=== PATIENT | female | born 1955 | race Caucasian/White ===

== ENCOUNTER 2022-06-01 16:18 | Inpatient (IN) | payer MEDICAID, MEDICARE ==
[~2022-06-01] VITALS: Ht 167.6 cm; Wt 78.0 kg
[2022-06-01] MEDS ORDERED: ONDANSETRON HCL 4MG/2ML INJ IV STA (23:55)
[2022-06-01] MEDS ORDERED: MORPHINE SULFATE 4 MG/ML CPJ (NOT FOR IM USE) IV STA (23:55)
[2022-06-02] MEDS ORDERED: SODIUM CHLORIDE 0.9% 1,000 ML IV ONE
[2022-06-02 00:34] LABS: BASOPHILS % 0.4 % (0.0-2.0); EOSINOPHILS % 3.3 % (0.0-5.0); HEMATOCRIT. 36.3 % (36.0-48.0); HEMOGLOBIN. 12.3 g/dL (12.0-16.0); LYMPHOCYTES % 27.3 % (20.0-50.0); MEAN CORPUSCULAR HEMOGLOBIN 30.2 pg (28.0-32.0); MEAN CORPUSCULAR VOLUME 89.4 fL (81.0-99.0); MEAN PLATELET VOLUME 8.9 fl (7.4-10.4); MONOCYTES % 9.5 % (2.0-8.0); NEUTROPHILS % 59.5 % (40.0-76.0); PLATELET 237 x1000/uL (130-400); RED BLOOD CELL COUNT 4.06 mill/uL (4.2-5.4); RED CELL DISTRIBUTION WIDTH 13.4 % (11.6-14.6)
[2022-06-02] MEDS ORDERED: METRONIDAZOLE 500 MG PREMIX 100 ML IV NR (01:00)
[2022-06-02] MEDS ORDERED: CEFTRIAXONE 1 G PREMIX 50 ML IV NR (01:00)
[2022-06-02 01:19] LABS: CLARITY URINE CLEAR (CLEAR); COLOR URINE YELLOW (YELLOW); KETONES URINE NEGATIVE (NEGATIVE); LEUKOCYTE ESTERASE URINE 1+ (NEGATIVE); NITRITE URINE NEGATIVE (NEGATIVE); OCCULT BLOOD URINE 1+ (NEGATIVE); PROTEIN URINE NEGATIVE (NEGATIVE); SPECIFIC GRAVITY URINE 1.007 (1.005-1.030); UROBILINOGEN URINE 0.2 E.U./dL (0.2-1.0)
[2022-06-02 01:54] LABS: CHLORIDE 107 mEq/L (98-107)
[2022-06-02] MEDS ORDERED: OMEP20CA14 PO (08:05)
[2022-06-02] MEDS ORDERED: LISI-186 PO (08:05)
[2022-06-02] MEDS ORDERED: HYDROCODONE/ACETAMINOPHEN 5/325MG TABLET PO PRN (09:00)
[2022-06-02] MEDS ORDERED: CLONIDINE 0.1MG TABLET PO PRN (09:00)
[2022-06-02] MEDS ORDERED: ONDANSETRON HCL 4MG/2ML INJ IV PRN (09:00)
[2022-06-02] MEDS ORDERED: IPRATROPIUM/ALBUTEROL 0.5-3(2.5)MG/3ML NEB NEB PRN (09:00)
[2022-06-02] MEDS ORDERED: GUAIFENESIN 200MG/10ML SUGAR FREE UDC PO PRN (09:00)
[2022-06-02] MEDS ORDERED: DOCUSATE SODIUM 100MG CAPSULE PO PRN (09:00)
[2022-06-02] MEDS ORDERED: ACETAMINOPHEN 325MG TABLET PO PRN ×2 (09:00)
[2022-06-02] MEDS ORDERED: MAGNESIUM/ALUMINUM HYDROXIDE/SIMETHICONE 30ML UDC PO PRN (09:00)
[2022-06-02] MEDS ORDERED: NALOXONE HCL 0.4MG/ML VIAL IV PRN (09:30)
[2022-06-02] MEDS: LISINOPRIL 10MG TABLET PO SCH (09:40)
[2022-06-02] MEDS: PANTOPRAZOLE SODIUM 40 MG/VIAL IV SCH (09:40)
[2022-06-02] MEDS: DEXT 5%/0.45% NACL 1000ML 1,000 ML IV SCH ×2 (09:40→22:12)
[2022-06-02] MEDS ORDERED: METRONIDAZOLE 500 MG PREMIX 100 ML IV SCH (10:00)
[2022-06-02] MEDS: ENOXAPARIN 40MG/0.4ML SYR SUBCUT SCH (10:42)
[2022-06-02 20:00] VITALS: BP 111/45
[2022-06-02] MEDS ORDERED: CEFTRIAXONE 1,000 MG in DEXTROSE 5% WATER 50 ML IV SCH (22:00)
[2022-06-02] MEDS: METRONIDAZOLE 500 MG PREMIX 100 ML IV SCH (22:04)
[2022-06-03] VITALS (7 sets, daily range): BP systolic 96–134; BP diastolic 43–68
[2022-06-03] MEDS: METRONIDAZOLE 500 MG PREMIX 100 ML IV SCH ×2 (05:26→15:12)
[2022-06-03 07:30] LABS: BASOPHILS % 0.7 % (0.0-2.0); EOSINOPHILS % 7.9 % (0.0-5.0); HEMATOCRIT. 35.6 % (36.0-48.0); HEMOGLOBIN. 12.1 g/dL (12.0-16.0); LYMPHOCYTES % 36.5 % (20.0-50.0); MEAN CORPUSCULAR HEMOGLOBIN 30.5 pg (28.0-32.0); MEAN CORPUSCULAR VOLUME 89.4 fL (81.0-99.0); MEAN PLATELET VOLUME 8.5 fl (7.4-10.4); MONOCYTES % 10.8 % (2.0-8.0); NEUTROPHILS % 44.1 % (40.0-76.0); PLATELET 230 x1000/uL (130-400); RED BLOOD CELL COUNT 3.98 mill/uL (4.2-5.4); RED CELL DISTRIBUTION WIDTH 13.3 % (11.6-14.6)
[2022-06-03] MEDS ORDERED: CEFTRIAXONE 1,000 MG in DEXTROSE 5% WATER 50 ML IV SCH (08:00)
[2022-06-03] MEDS: LISINOPRIL 10MG TABLET PO SCH (09:00)
[2022-06-03 09:12] LABS: CHLORIDE 111 mEq/L (98-107); HDL CHOLESTEROL 66 mg/dL (40-59); LDL CHOLESTEROL 72 mg/dL (5-100)
[2022-06-03] MEDS: PANTOPRAZOLE SODIUM 40 MG/VIAL IV SCH (09:19)
[2022-06-03] MEDS: ENOXAPARIN 40MG/0.4ML SYR SUBCUT SCH (09:28)
[2022-06-03] MEDS: DEXT 5%/0.45% NACL 1000ML 1,000 ML IV SCH (11:40)
[2022-06-04] MEDS ORDERED: LISINOPRIL 5MG TABLET PO SCH (09:00)
== END 2022-06-03 19:20 | disposition home or self-care (01) | DRG 392 ==
LOC: ER 16:18 → 6EST 06-02 02:31 → EDBEDREQTM 06-02 02:35 → EDBEDREQ 06-02 02:35 → SUPCPDRO 06-02 08:55 → ENRESERV 06-02 14:55
PROVIDERS: ADMIT Internal Medicine; ATTEND Internal Medicine
DX: K57.32 Diverticulitis of large intestine without perforation or abscess without bleeding (principal); I10 Essential (primary) hypertension; Z20.822 Contact with and (suspected) exposure to COVID-19; R16.0 Hepatomegaly, not elsewhere classified; Z79.899 Other long term (current) drug therapy; Z90.49 Acquired absence of other specified parts of digestive tract
CPT/HCPCS: 36415; 71045; 74176; 80053; 80061; 81003; 83036; 83605; 84145; 84439; 84443; 85025; 87426; 97162; 99285; C9113; J0696; J1650; J2270; J2405; J3490; J7030; J7060

== ENCOUNTER 2024-02-08 19:25 | Emergency (ER) | payer MEDICARE, OTHER ==
[~2024-02-08] VITALS: Ht 160 cm; Wt 77.0 kg
[~2024-02-08 19:25] MED LIST: LISI-186 PO; OMEP20CA14 PO
[2024-02-08 19:39] VITALS: TEMP 98.9; O2SAT 97
[2024-02-08 21:49] VITALS: BP 142/63; PULSE 68; RESP 16
== END 2024-02-08 21:49 | disposition home or self-care (01) ==
LOC: ER 19:25
DX: J06.9 Acute upper respiratory infection, unspecified (principal); I10 Essential (primary) hypertension; Z20.822 Contact with and (suspected) exposure to COVID-19
CPT/HCPCS: 71045; 87426; 87804; 99284